=== PATIENT | female | born 1960 | race Caucasian/White ===

== ENCOUNTER 2020-05-14 14:34 | Emergency (ER) | payer BC, SELFPAY ==
--- NOTE | 2020-05-14 14:37 | W.ED.GENAD ---
Discharge Plan Disposition Patient Disposition: HOME Condition: Good Discharge Details Clinical Impression: Distal radial fracture Primary Care Provider: Ofe,Local ED Provider: Ella Gallagher Home Meds and New Rx's Prescriptions: New oxycodone 5 mg capsule 5 mg PO Q8H PRN (Reason: pain) Qty: 5 RF: 0 Continued duloxetine [Cymbalta] 20 mg Capsule,Delayed Release(Dr/Ec) 20 mg PO DAILY RF: 0 Discharge Instructions Instructions: Wrist Fracture in Adults (ED) Additional Instructions: You have an impacted wrist fracture. Please encourage rest, ice, elevation. Tylenol and/or ibuprofen as needed for discomfort. If this is insufficient at alleviating her discomfort, you may use the oxycodone as prescribed. Please not drive will taking this medication. Please take only as prescribed and soreness take place. You may use the sling to help with elevation. If you develop any new or worsening symptoms please seek care urgently once again. Otherwise, please contact local orthopedic close follow-up in the next week for reevaluation. Discharge Data Discharge Date/Time-TO BE ENTERED AT DEPARTURE: 05/14/20 16:00 Medical Decision Making patient is a pleasant 59-year-old [id number] female presenting today with chief complaint of right wrist injury. She reports that prior to arrival she was skiing when she fell and landed directly on the right wrist. She denies other injury the time of the incident. She was helmeted at the time of the fall. She denies any numbness or tingling. No previous injury to this wrist. On exam, patient appears nontoxic. She has notable ecchymosis and swelling over the distal radius. Concern for fracture. No swelling over the ulna. No pain with range of motion or palpation of the elbow. No pain over the anatomical snuffbox or with axial loading of the thumb. Good capillary refill, 2+ distal pulses. Sensation intact in her digits. Will give pain medication and obtain x-ray of the patient's wrist. FINDINGS: Bones/joints: Comminuted impacted intra-articular fracture distal right radius. Displaced fracture tip of the ulnar styloid. 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 Soft tissues: Soft tissue swelling IMPRESSION: Comminuted impacted intra-articular fracture distal right radius and displaced fracture distal tip ulnar styloid. Discussed the findings with the patient. The impacted nature of this fracture does not allow for reduction at this time. Plan for splinting and follow-up with orthopedics. A plaster splint was made by myself. Patient tolerated this well. Continues to have good sensation capillary refill after application of splint. Encourage rest, ice, elevation. Tylenol and ibuprofen as needed for discomfort. Patient is requesting narcotic pain medication to help with sleep. I do feel that this is reasonable. She is instructed not to drive will take this medication only to take this as prescribed. A disc of her images will be sent. Patient is from [place] and will be following up with orthopedics at home. Return precautions were discussed. All of her questions and concerns were addressed and she is in agreement with this plan. HPI General Mode of arrival: ambulatory. Date/Time Provider Initiated Documentation: 05/14/20 14:37. Limitations to Documentation: no limitations. Information obtained by: patient and RN notes reviewed. History of Present Illness 59 year old F presents to the emergency department with the chief complaint of right wrist pain, described as moderate, with intensity rated at 6. Quality is described as aching, and is localized to the right and upper extremity. Patient reports no radiation. Patient started experiencing this minute(s) and it has been constant. Immobilization improves symptom(s), Movement worsens symptoms . Patient notes no other symptoms.. Patient did receive the following treatments prior to arrival, none Related Data Home Medications Medication Instructions Recorded Confirmed duloxetine [Cymbalta] 20 mg PO DAILY 05/14/20 05/14/20 oxycodone 5 mg PO Q8H PRN #5 cap 05/14/20 Previous Rx's Medication Instructions Recorded oxycodone 5 mg PO Q8H PRN #5 cap 05/14/20 Allergies Allergy/AdvReac Type Severity Reaction Status Date / Time No Known Allergies Allergy Unverified 05/14/20 14:38 Review of Systems Constitutional Constitutional: Reports as per HPI, Denies chills, Denies fever(s), Denies headache(s) and Denies weakness ENT Ears, Nose, Mouth, and Throat: Denies headache(s) Cardiovascular Cardiovascular: Reports as per HPI Respiratory Respiratory: Reports as per HPI and Denies cough Musculoskeletal Musculoskeletal: Reports as per HPI and Denies tingling Integumentary/Breasts Skin/Breast: Reports as per HPI, Denies rash and Denies wounds Neurologic Neurologic: Reports as per HPI, Denies headache(s), Denies tingling, Denies paresthesias and Denies weakness [facility] Social History Smoking/Tobacco Use Status: Never Smoking risk assessment performed?: Yes Alcohol Intake: current Alcohol Intake frequency: a few times a month Drug use: Never Exam Const General: cooperative, healthy appearing, uncomfortable, no acute distress, well developed and well groomed Nutritional Appearance: average body habitus and well nourished Orientation: alert and awake [facility] Head: normal to inspection, no palpable skull fracture, normocephalic and atraumatic Neck Neck: normal visual inspection, full ROM and nontender Chest Chest: normal inspection of the chest, normal palpation of entire chest wall and no tenderness Resp Effort & Inspection: normal respiratory effort, able to speak in complete sentences and no respiratory distress Cardio Rate: regular rate Rhythm: regular rhythm GI Inspection: normal to inspection Palpation: soft and nontender Back/Spine/Pelvis Cervical Spine: normal cervical lordosis, cervical ROM normal, No cervical spinal tenderness and No step off deformity Thoracic/Lumbar Spine: thoracic and lumbar spine normal to inspection, No thoracic spinal tenderness and No lumbar spinal tenderness Skin General skin exam: ecchymosis (dorsal right wrist) Neuro General: patient alert and patient awake Cognition: normal cognition Speech: speech normal Gait: normal gait Motor: muscle tone normal throughout Sensory Exam: no sensory deficits noted Extrem Elbow/forearm/wrist images: 1. Area of swelling, tenderness and ecchymosis. No break in the skin. No erythema or warmth. Limited range of motion of the wrist secondary to pain in this area. Sensation is intact in all digits. No pain over the anatomical snuffbox. No pain with axial thumb loading. No pain proximal to distal range of motion of the elbow. Ligamentously intact. Psych Appearance: grossly normal and well kempt Mental Status: mental status grossly normal Speech and Movement: speech and movement normal
[2020-05-14 14:38] VITALS: TEMP 37.1
--- NOTE | 2020-05-14 14:45 | DI.RAD_ITS ---
EXAM: XR WRIST RT COMPLETE CLINICAL HISTORY: fall skiing, deformity to distal radius. TECHNIQUE: 2D digital imaging was performed. COMPARISON: No exams were available for comparison FINDINGS: There is a comminuted and mildly impacted fracture of the distal radius which violates the radiocarpa l joint space. There is also a displaced fracture of the tip of the ulnar styloid noted. IMPRESSION: DATA REPOSITORY: RADIATION DOSE DELIVERED:
[2020-05-14 14:47] VITALS: BP 117/67; PULSE 46; RESP 16; TEMP 37.1; O2SAT 100
[2020-05-14] MEDS: Acetaminophen 500 MG TAB 1000 MG PO (14:52)
[2020-05-14] MEDS: oxyCODONE 5 MG TAB PO (14:53)
--- NOTE | 2020-05-14 15:23 | DI.VRAD_ITS ---
PROCEDURE INFORMATION: Exam: XR Right Wrist Exam date and time: 05/14/2020 2:47 PM Age: 59 years old Clinical indication: Other: Fall skiing, deformity to distal radius TECHNIQUE: Imaging protocol: XR Right wrist. Views: 3 or more views. COMPARISON: No relevant prior studies available. FINDINGS: Bones/joints: Comminuted impacted intra-articular fracture distal right radius. Displaced fracture tip of the ulnar styloid. 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 Soft tissues: Soft tissue swelling IMPRESSION: Comminuted impacted intra-articular fracture distal right radius and displaced fracture distal tip ulnar styloid. Dictated and Authenticated by: Tali Ellison MD. Ordering:DAVID Jaramillo MD
[2020-05-14 16:00] VITALS: BP 112/67; PULSE 52; RESP 16; O2SAT 98
== END 2020-05-14 16:00 | disposition home or self-care (01) ==
PROVIDERS: Emergency Provider Physician Assistant
DX: S52.571A Other intraarticular fracture of lower end of right radius, initial encounter for closed fracture (principal); S52.611A Displaced fracture of right ulna styloid process, initial encounter for closed fracture; V00.321A Fall from snow-skis, initial encounter; Y93.23 Activity, snow (alpine) (downhill) skiing, snowboarding, sledding, tobogganing and snow tubing
CPT/HCPCS: 29125; 99283; 73110